=== PATIENT | male | born 1970 | race African-American/Black ===

== ENCOUNTER 2024-07-02 10:53 | Inpatient (IN) | payer OTHER ==
[2024-07-02 11:28] VITALS: BMI 24.8
[2024-07-02] MEDS ORDERED: POLYETHYLENE GLYCOL (HEALTHYLAX) 3350 17 GM PACKET PO PRN (11:51)
[2024-07-02] MEDS ORDERED: IBUPROFEN 600 MG TABLET (FP) PO PRN (11:51)
[2024-07-02] MEDS ORDERED: NICOTINE POLACRILEX 2 MG LOZENGE BC PRN (11:51)
[2024-07-02] MEDS ORDERED: BENZONATATE 200 MG CAPSULE PO PRN (11:51)
[2024-07-02] MEDS ORDERED: guaiFENesin 600 MG TABLET.ER (FP) PO PRN (11:51)
[2024-07-02] MEDS ORDERED: NICOTINE POLACRILEX 2 MG GUM BUC PRN (11:51)
[2024-07-02] MEDS ORDERED: IBUPROFEN 400 MG TABLET (FP) PO PRN (11:51)
[2024-07-02] MEDS ORDERED: MAG HYDROX/AL HYDROX/SIMETH 30 ML UNIT-DOSE CUP PO PRN (11:51)
[2024-07-02] MEDS ORDERED: NALOXONE (NARCAN) HCL 4 MG/0.1 ML SPRAY NS PRN (11:51)
[2024-07-02] MEDS ORDERED: MAGNESIUM HYDROX 2400MG/30ML ORAL SUSPENSION 30 ML CUP PO PRN (11:51)
[2024-07-02] MEDS ORDERED: NALOXONE (NYS OPIOID OVERDOSE PROGRAM) 4 MG/0.1 ML SPRAY NS PRN (11:51)
[2024-07-02] MEDS ORDERED: TUBERCULIN PPD 5 TU/0.1ML VIAL ID ONE (13:50)
[2024-07-02] MEDS: PANTOPRAZOLE 20 MG TABLET PO SCH (13:53)
[2024-07-02] MEDS: TUBERCULIN PPD 5 TU/0.1ML SYRINGE (IN PATIENT USE ONLY) ID ONE (14:52)
[2024-07-02] MEDS: hydrOXYzine PAMOATE 25 MG CAPSULE (FP) PO PRN (21:28)
[2024-07-02] MEDS: SUVOREXANT 10 MG TABLET PO PRN (21:28)
[2024-07-02] MEDS: THIAMINE 100 MG TABLET PO SCH (21:28)
[2024-07-03] MEDS: LISINOPRIL 20 MG TABLET PO SCH (10:19)
[2024-07-03] MEDS: ASPIRIN 81 MG CHEWABLE TABLETS PO SCH (10:19)
[2024-07-03] MEDS: PRENATAL VITAMINS W/ FOLIC ACID TABLET (FP) PO SCH (10:19)
[2024-07-03] MEDS ORDERED: BUPRENORPHINE HCL 150 MCG, BUPRENORPHINE HCL 75 MCG BC PRN (15:33)
[2024-07-03] MEDS ORDERED: diazePAM 5 MG TABLET PO PRN (15:33)
[2024-07-03] MEDS: cloNIDine HCL 0.1 MG TABLET PO ONE (16:37)
[2024-07-03] MEDS: BUPRENORPHINE HCL 150 MCG, BUPRENORPHINE HCL 75 MCG BC ONE (16:37)
[2024-07-03 17:00] LABS: HEMATOCRIT 42.4 % (35.4-49); HEMOGLOBIN 13.9 GM/dL (11.7-16.9); MCH 30.3 pg (25.7-33.7); MCHC 32.7 g/dl (32.0-35.9); MEAN CELL VOLUME 92.9 fl (80-96); MEAN PLT VOLUME 8.2 fl (7.5-11.1); PLATELET COUNT 200 10^3/uL (134-434); RBC 4.57 M/mm3 (4.00-5.60); RDW 15.2 % (11.9-15.9); WHITE BLOOD COUNT 4.4 K/mm3 (4.0-10.0)
[2024-07-03 17:20] LABS: POTASSIUM 4.3 mmol/L (3.5-5.1)
[2024-07-03 17:22] LABS: CALCIUM 9.5 mg/dL (8.5-10.1)
[2024-07-03 17:23] LABS: ALBUMIN 3.5 g/dl (3.4-5.0); BLOOD UREA NITROGEN 11.3 mg/dL (7-18)
[2024-07-03 17:26] LABS: CREATININE 0.9 mg/dL (0.55-1.3)
[2024-07-03 17:27] LABS: BILIRUBIN,TOTAL 0.9 mg/dL (0.2-1); TOT PROT 6.2 g/dl (6.4-8.2)
[2024-07-03 17:40] LABS: SYPHILIS W/ RPR CONF NON-REACTIVE (NONREACTIVE)
[2024-07-03] MEDS: BISMUTH SUBSALICYLATE 262 MG/15 ML BTL PO ONE (19:41)
[2024-07-03] MEDS: PANTOPRAZOLE 20 MG TABLET PO SCH (21:17)
[2024-07-03] MEDS: ATORVASTATIN CA 40 MG TABLET (FP) PO SCH (21:17)
[2024-07-03] MEDS: BUPRENORPHINE/NALOXONE 8 MG/2 MG FILM PACKET SL SCH (21:19)
[2024-07-04] MEDS ORDERED: BUPRENORPHINE HCL 150 MCG, BUPRENORPHINE HCL 75 MCG BC PRN
[2024-07-04] MEDS: BUPRENORPHINE HCL 150 MCG, BUPRENORPHINE HCL 75 MCG BC SCH (06:10)
[2024-07-04] MEDS: cloNIDine HCL 0.1 MG TABLET PO PRN (09:44)
[2024-07-04] MEDS: BUPRENORPHINE/NALOXONE 4 MG/1 MG FILM PACKET SL SCH (10:11)
[2024-07-04 21:04] LABS: PH,URINE 5.5 (5.0-8.0); URINE APPEARANCE CLEAR; URINE BILIRUBIN NEGATIVE (NEGATIVE); URINE COLOR YELLOW; URINE GLUCOSE (UA) NEGATIVE (NEGATIVE); URINE KETONE NEGATIVE (NEGATIVE); URINE LEUK ESTERASE NEGATIVE (NEGATIVE); URINE NITRITE NEGATIVE (NEGATIVE); URINE PROTEIN NEGATIVE (NEGATIVE); URINE UROBILINOGEN 0.2 mg/dL (0.2-1.0)
[2024-07-04] MEDS: MELATONIN 5 MG TABLETS PO SCH (21:36)
[2024-07-05] MEDS: ACETAMINOPHEN 325 MG TABLET (FP) PO PRN (00:51)
[2024-07-05] MEDS ORDERED: BUPRENORPHINE HCL 450 MCG FILM BC SCH (06:00)
[2024-07-05] MEDS: LOPERAMIDE HCL 2 MG CAPSULE PO PRN (21:20)
[2024-07-06] MEDS ORDERED: BUPRENORPHINE/NALOXONE 4 MG/1 MG FILM PACKET SL SCH (06:00)
[2024-07-07] MEDS: QUEtiapine FUMARATE 100 MG TABLET (FP) PO SCH (21:03)
[2024-07-10] MEDS: BENZOCAINE/MENTHOL (CHLORASEPTIC ) LOZENGE MM PRN (21:12)
[2024-07-11] MEDS: FUROSEMIDE 20 MG TABLET (FP) PO SCH (17:14)
[2024-07-11] MEDS: ASPIRIN COATED 81 MG TABLET.EC PO SCH (17:14)
[2024-07-11] MEDS: BUPRENORPHINE/NALOXONE 2 MG/0.5 MG FILM PACKET SL SCH (21:34)
[2024-07-21] MEDS: BUPRENORPHINE/NALOXONE 4 MG/1 MG FILM PACKET SL SCH (21:07)
[2024-07-23 06:58] VITALS: RESP 18; TEMP 97.6
[2024-07-23 09:38] VITALS: BP 150/76; PULSE 88
== END 2024-07-23 09:03 | disposition home or self-care (01) | DRG 772 ==
LOC: YASAS 10:53 → Y5N 13:26
PROVIDERS: ADMIT Allergy & Immunology; ATTEND Psychiatry & Neurology Pain Medicine
PROC: HZ42ZZZ Group Counseling for Substance Abuse Treatment, Cognitive-Behavioral (ICD-10-PCS; principal; 2024-07-02)
DX: F11.20 Opioid dependence, uncomplicated (principal); F14.20 Cocaine dependence, uncomplicated; F17.210 Nicotine dependence, cigarettes, uncomplicated; I25.10 Atherosclerotic heart disease of native coronary artery without angina pectoris; I10 Essential (primary) hypertension; E78.5 Hyperlipidemia, unspecified; G47.00 Insomnia, unspecified; Z59.02 Unsheltered homelessness
CPT/HCPCS: 36415; 80053; 80305; 81003; 85027; 86780; 86803; 87811; 93005; 93010

== ENCOUNTER 2025-01-19 13:49 | Inpatient (IN) | payer MEDICARE, OTHER ==
[2025-01-19 14:20] VITALS: BMI 28.4
[2025-01-19] MEDS ORDERED: NICOTINE POLACRILEX 2 MG GUM BUC PRN (14:45)
[2025-01-19] MEDS ORDERED: BENZONATATE 200 MG CAPSULE PO PRN (14:45)
[2025-01-19] MEDS ORDERED: NALOXONE (NARCAN) HCL 4 MG/0.1 ML SPRAY NS PRN (14:45)
[2025-01-19] MEDS ORDERED: cloNIDine HCL 0.1 MG TABLET PO PRN (14:45)
[2025-01-19] MEDS ORDERED: DICYCLOMINE HCL 10 MG CAPSULE PO PRN (14:45)
[2025-01-19] MEDS ORDERED: methaDONE HCL 10 MG TABLET (FOR DETOX USE ONLY) PO PRN (14:45)
[2025-01-19] MEDS ORDERED: MAGNESIUM HYDROX 2400MG/30ML ORAL SUSPENSION 30 ML CUP PO PRN (14:45)
[2025-01-19] MEDS ORDERED: BISMUTH SUBSALICYLATE 262 MG/15 ML BTL PO PRN (14:45)
[2025-01-19] MEDS ORDERED: ONDANSETRON *ODT* 4 MG TABLET SL PRN (14:45)
[2025-01-19] MEDS ORDERED: LOPERAMIDE HCL 2 MG CAPSULE PO PRN (14:45)
[2025-01-19] MEDS ORDERED: IBUPROFEN 400 MG TABLET (FP) PO PRN (14:45)
[2025-01-19] MEDS ORDERED: MAG HYDROX/AL HYDROX/SIMETH 30 ML UNIT-DOSE CUP PO PRN (14:45)
[2025-01-19] MEDS ORDERED: POLYETHYLENE GLYCOL (HEALTHYLAX) 3350 17 GM PACKET PO PRN (14:45)
[2025-01-19] MEDS ORDERED: guaiFENesin 600 MG TABLET.ER (FP) PO PRN (14:45)
[2025-01-19] MEDS ORDERED: ACETAMINOPHEN 325 MG TABLET (FP) PO PRN (14:45)
[2025-01-19] MEDS ORDERED: BENZOCAINE/MENTHOL (CHLORASEPTIC ) LOZENGE MM PRN (14:45)
[2025-01-19] MEDS ORDERED: IBUPROFEN 600 MG TABLET (FP) PO PRN (14:45)
[2025-01-19] MEDS ORDERED: methaDONE HCL 10 MG TABLET (FOR DETOX USE ONLY) ONE (18:11)
[2025-01-19] MEDS: methaDONE HCL 40 MG DISPERSABLE TABLET PO ONE (18:16)
[2025-01-19] MEDS: methaDONE HCL 10 MG TABLET (FOR DETOX USE ONLY) PO ONE (19:04)
[2025-01-19] MEDS: MELATONIN 5 MG TABLETS PO SCH (22:34)
[2025-01-19] MEDS: THIAMINE 100 MG TABLET PO SCH (22:34)
[2025-01-20] MEDS: methaDONE HCL 10 MG TABLET (FOR DETOX USE ONLY) PO ONE (10:41)
[2025-01-20] MEDS: PRENATAL VITAMINS W/ FOLIC ACID TABLET (FP) PO SCH (10:41)
[2025-01-20] MEDS: NICOTINE 21 MG/24 HOURS TOPICAL PATCH TD SCH (10:41)
[2025-01-20 11:29] LABS: HEMATOCRIT 44.2 % (40.1-51.0); HEMOGLOBIN 14.3 g/dL (13.7-17.5); MCHC 32.4 g/dl (32.3-36.5); MEAN CELL VOLUME 89.8 fl (79.0-92.2); PLATELET COUNT 266 x10^3/uL (163-337); RDW 14.8 % (12.2-16.1)
[2025-01-20 11:35] LABS: POTASSIUM 3.5 mmol/L (3.5-5.1)
[2025-01-20 11:41] LABS: ALBUMIN 3.7 g/dl (3.4-5.0)
[2025-01-20 11:42] LABS: CALCIUM 9.7 mg/dL (8.5-10.1)
[2025-01-20 11:43] LABS: BLOOD UREA NITROGEN 9.2 mg/dL (7-18)
[2025-01-20 11:46] LABS: BILIRUBIN,TOTAL 0.7 mg/dL (0.2-1); CREATININE 0.9 mg/dL (0.55-1.3); TOT PROT 6.9 g/dl (6.4-8.2)
[2025-01-20] MEDS: PANTOPRAZOLE 20 MG TABLET PO SCH (12:51)
[2025-01-20] MEDS: LISINOPRIL 20 MG TABLET PO SCH (12:51)
[2025-01-20] MEDS: ASPIRIN 81 MG CHEWABLE TABLETS PO SCH (12:51)
[2025-01-20] MEDS: METHOCARBAMOL 500 MG TABLET PO PRN (12:52)
[2025-01-20] MEDS: QUEtiapine FUMARATE 100 MG TABLET (FP) PO PRN (22:27)
[2025-01-20] MEDS: ATORVASTATIN CA 40 MG TABLET (FP) PO SCH (22:27)
[2025-01-22] MEDS: methaDONE HCL 10 MG TABLET (FOR DETOX USE ONLY) PO ONE (10:02)
[2025-01-22] MEDS: amLODIPine BESYLATE 5 MG TABLET (FP) PO SCH (15:07)
[2025-01-24] MEDS: methaDONE HCL 10 MG TABLET (FOR DETOX USE ONLY) PO ONE (10:11)
[2025-01-25 08:44] VITALS: BP 140/78; PULSE 73; RESP 18; TEMP 97.8
== END 2025-01-25 09:30 | disposition home or self-care (01) | DRG 773 ==
LOC: YASAS 13:49 → Y6N 17:57
PROVIDERS: ADMIT Allergy & Immunology; ATTEND Allergy & Immunology
PROC: HZ2ZZZZ Detoxification Services for Substance Abuse Treatment (ICD-10-PCS; principal; 2025-01-19)
DX: F11.23 Opioid dependence with withdrawal (principal); F14.10 Cocaine abuse, uncomplicated; F17.210 Nicotine dependence, cigarettes, uncomplicated; E78.5 Hyperlipidemia, unspecified; I10 Essential (primary) hypertension; Z99.89 Dependence on other enabling machines and devices
CPT/HCPCS: 36415; 80053; 80305; 80307; 85027; 86780; 93005; 93010